=== PATIENT | female | born 1950 | race Caucasian/White ===

== ENCOUNTER 2019-06-16 07:53 | Outpatient (CLI) | payer MEDICARE, SELFPAY ==
--- NOTE | 2019-06-16 09:05 | ECG_ITS ---
Measurements Intervals [place] Rate: 61 P: 21 CO: 181 QRS: 0 QRSD: 92 T: -15 QT: 407 QTc: 411 Interpretive Statements SINUS RHYTHM POOR R WAVE PROGRESSION, ANTERIOR LEADS BORDERLINE ST-T WAVE ABNORMALITY- ANT/INF LEADS BASELINE ARTIFACT- I, II, III, AVR, AVL, AVF BORDERLINE ECG Electronically Signed On 06-16-2019 9:51:59 PROJECT MANAGER/TEAM COACH by Ricki Jackson D.O.
[2019-06-16 10:32] LABS: Hemoglobin A1C 5.3 % (<5.7)
[2019-06-16 10:35] LABS: Albumin Level 4.6 g/dL (3.5-5.1); Blood Urea Nitrogen 15 mg/dL (7-17); Calcium 9.8 mg/dL (8.4-10.2); Carbon Dioxide 27 mmol/L (22-30); Chloride 99 mmol/L (98-107); Estimated Glomerular Filt Rate > 60; Glucose 81 mg/dL (65-105); Potassium 3.8 mmol/L (3.4-5.0); Sodium 139 mmol/L (137-145)
[2019-06-16 10:48] LABS: Urine Cotinine NEGATIVE
[2019-06-16 10:50] LABS: Add Urine Microscopic? YES; Appearance Urine Clear (Clear); Bilirubin Urine Negative (Negative); Blood Urine Negative (Negative); Color Urine Yellow (Yellow); Glucose Urine UA Negative (Negative); Ketones Urine Negative (Negative); Leukocyte Esterase Ur Trace LEU/UL (Negative); Mucus Urine Rare /lpf; Nitrate Urine Negative (Negative); Protein Urine Negative (Negative); Specific Grav Ur 1.012 (1.001-1.035); Squamous Epithelial Cell Urine Occasional /hpf (Few); Urobilinogen Urine Negative mg/dL (<2.0); WBC Urine 0-3 /hpf
[2019-06-16 10:54] LABS: Basophils Percent Auto 0.4 % (0.2-1.2); Eosinophils Absolute Auto 0.1 K/mm3 (0-0.3); Eosinophils Percent Auto 1.8 % (0-4.4); Hematocrit 43.4 % (37.0-47.0); Hemoglobin 14.1 g/dL (12.0-15.0); Immature Granulocyte Absolute 0.03 K/mm3 (0.00-0.031); Immature Granulocyte Percent A 0.5 % (0-0.5); Lymphocytes Absolute Auto 0.89 K/mm3 (0.9-3.2); Lymphocytes Percent Auto 16.1 % (18.3-44.2); Mean Corpuscular HGB Conc 32.5 g/dl (32-36); Mean Corpuscular Hemoglobin 29.7 pg (26-34); Mean Corpuscular Volume 91.6 fl (80-100); Mean Platelet Volume 10.8 fl (7.4-10.4); Monocytes Absolute Auto 0.5 K/mm3 (0.1-0.6); Monocytes Percent Auto 9.2 % (2.6-8.5); Platelet Count Result 284 k/mm3 (150-375); Prothrombin Time 12.7 Seconds (11.1-14.7); Red Blood Count 4.74 M/mm3 (4.2-5.4); Red Cell Distribution Width 13.3 % (11.5-14.5); White Blood Count 5.5 K/mm3 (4.5-10.0)
[2019-06-16 10:55] LABS: Partial Thromboplastin Time 32.2 SECONDS (22.3-36.8)
== END 2019-06-16 07:54 | disposition home or self-care (01) ==
PROVIDERS: PCP Internal Medicine; Visit Provider Orthopaedic Surgery
DX: Z01.812 Encounter for preprocedural laboratory examination (principal); Z01.810 Encounter for preprocedural cardiovascular examination; M16.12 Unilateral primary osteoarthritis, left hip; R94.31 Abnormal electrocardiogram [ECG] [EKG]
CPT/HCPCS: 36415; 80048; 80307; 81001; 82040; 83036; 85025; 85610; 85730; 87081; 93005

== ENCOUNTER 2019-07-06 19:03 | Inpatient (IN) | payer MEDICARE, SELFPAY ==
[2019-06-16 07:58] VITALS: BMI 35.7
[2019-06-16 09:13] VITALS: BP 113/77; PULSE 63; RESP 18; TEMP 37.1; O2SAT 98
[2019-07-05] VITALS (14 sets, daily range): BP systolic 102–120; BP diastolic 57–81; PULSE 54–106; RESP 10–19; TEMP 36.1–37.1; O2SAT 96–100
[2019-07-05] MEDS: LACTATED RINGERS 1,000 ML 30 ML IV CONT ×2 (06:50→11:00)
[2019-07-05] MEDS: IBUPROFEN IV 800 MG/200 ML 800 MG/200 ML BAG 400 MG IVPB (07:00)
--- NOTE | 2019-07-05 07:05 | WPDANESEPPF ---
Anes - Initial Pre Proc Eval Procedure: Operation Date: 07/05/19 07:30 Proposed Procedures p Left Total Hip Arthroplasty - Alan Mercer MD Date/Time: 07/05/19 07:05 Surgeon: Alan Mercer MD Pre Op Diagnosis: Left Hip DJD Patient Data Age: 69 Gender: F Height: 1.52 m Weight: 82.3 kg Last Vital Signs Temp 37.1 C 07/05/19 06:59 Pulse 61 07/05/19 06:59 Resp 18 07/05/19 06:59 BP 120/68 07/05/19 06:59 Pulse Ox 100 07/05/19 06:59 Allergies Allergy/AdvReac Type Severity Reaction Status Date / Time prednisone Allergy Intermediate Unknown Verified 07/04/19 15:32 Home Medications Medication Instructions Recorded Confirmed Type cyanocobalamin (vitamin B-12) 1,000 mcg PO DAILY #1 cap 04/04/19 07/05/19 Rx 1,000 mcg capsule trospium 20 mg tablet 20 mg PO DAILY #1 tablet 04/04/19 07/05/19 Rx memantine 10 mg tablet 10 mg PO BID #60 tablet 05/25/19 07/05/19 Rx donepezil 10 mg tablet 10 mg PO DAILY #90 tablet 05/31/19 07/05/19 Rx levothyroxine 112 mcg tablet 112 mcg PO DAILY #90 tablet 05/31/19 07/05/19 Rx lisinopril-hydrochlorothiazide 10 - 12.5 tablet PO DAILY 06/16/19 07/05/19 History multivitamin,[id number] 1 tablet PO DAILY 06/16/19 07/05/19 History [Complete Multivitamin] simvastatin [Zocor] 40 mg PO HS 06/16/19 07/05/19 History sulfamethoxazole-trimethoprim 1 tablet PO DAILY 06/16/19 07/05/19 History Patient hx anesthesia problems: none Family hx anesthesia problems: none PMFSH Social History Social History (Updated 07/05/19 @ 07:06 by Beltran Callahan DO) Social History: quit 20 years ago Smoking status: Former smoker Second hand tobacco smoke exposure: No Alcohol intake: current Anes - Eval Final PreProcedure Day of Procedure 07/05/19 07:05 Patient weight: obese Heart: regular rate and rhythm Lungs: clear to auscultation and normal air movement Airway: Mallampati scale class II Neurological: alert and oriented Last oral intake: >/= 8 hours ASA classification: III Emergent: no Anesthetic plan: proceed Anesthesia type and monitoring: general ETT and standard monitoring Informed Consent: The patient's anesthetic plan and its attendant risks and benefits were discussed with the patient/family/POA. Questions were solicited and answers provided to the satisfaction of the patient/family/POA.
--- NOTE | 2019-07-05 07:31 | WPDHPUPDATE1 ---
History and Physical Update Update Date/Time: 07/05/19 07:31 History and Physical has been reviewed, including an updated exam of the patient. There are NO changes in the patient's condition. Risks, benefits, and alternatives have been discussed and questions answered. Patient agrees to proceed with procedure.
[2019-07-05] MEDS: ceFAZolin 2 GM/D5W 50 ML 2 GM/50 ML BAG IVPB ×3 (07:42→23:46)
--- NOTE | 2019-07-05 09:51 | SUR.OPER ---
1 UNIT PACKED RED BLOOD CELLS GIVEN BY ANESTHESIA. PLEASE SEE TAR RECORD.
--- NOTE | 2019-07-05 10:40 | PM.OP ---
Procedure Note - Brief Procedure Note - Brief Date of procedure: 07/05/19 Pre-op diagnosis: Left Hip DJD Post-op diagnosis: same Procedure performed: L LUCY Anesthesia: GETA Surgeon: Alan Mercer MD Estimated blood loss (mL): 1,000 Drains: No Complications: No immediate complications Condition: stable Disposition: PACU
[2019-07-05] MEDS: SODIUM CHLORIDE 0.9% IV 1,000 ML 125 ML IV CONT (11:00)
[2019-07-05 11:48] LABS: Hematocrit 36.1 % (37.0-47.0); Hemoglobin 11.8 g/dL (12.0-15.0)
--- NOTE | 2019-07-05 12:09 | SUR.PHASEI ---
1206 sbar faxed floor notified 1210 family updated and sent to floor
--- NOTE | 2019-07-05 12:31 | SUR.PHASEI ---
1231 rn just coming back from lunch, going to call me back
--- NOTE | 2019-07-05 13:20 | OP_ITS ---
DATE OF PROCEDURE: 07/05/2019 PREOPERATIVE DIAGNOSIS: Left hip degenerative joint disease. POSTOPERATIVE DIAGNOSIS: Left hip degenerative joint disease. PROCEDURE: Left total hip arthroplasty. ANESTHESIA: General. COMPLICATIONS: None. INDICATIONS: This is a 69-year-old female with end-stage left hip DJD. She was indicated for left total hip arthroplasty. DESCRIPTION OF PROCEDURE: The patient was taken to the operating room in stable condition and placed in supine position. General anesthesia was induced and then the patient was placed in the lateral decubitus and the left lower extremity was prepped and draped sterilely from the toes to the thigh. An incision was made over the posterior aspect of the hip down to the subcutaneous tissues and through the fascia. The sciatic nerve was identified. The piriformis tendon and the short external rotators were identified as well. The gluteus medius and minimus were retracted and the piriformis tendon was incised as well as the capsule and the incision continued down to the lesser trochanter. The hip was dislocated. Osteotomy was performed approximately 1 cm proximal to the lesser trochanter. The acetabulum was exposed. There were large inferior and superior osteophytes. Reaming then began in 40 degrees of abduction and version was in alignment with the trans-acetabular ligament until a 49 reamer fit well in the acetabulum. The 49 trial acetabular component was placed, it bottomed out very well and it was secure. The trial component was removed and then a Biomet OsseoTi #50 cup was press-fit in the acetabulum. It bottomed out well. It had good stability, 3 screws were placed for extra stability. The cup was very stable and then a liner was placed and it fit well and it was secure. The femur then was exposed and a canal finder was used initially and then broaching until a #7 broach in 15 degrees of anteversion sat well within the femoral canal. A trial +0 head and 36 standard offset component was placed on the broach and the hip was relocated and taken through range of motion. Leg lengths were grossly equal. The Shuck test was excellent and very stable in rotation. The trial components were removed and then a Biomet Taperloc #7 stem with a standard offset neck was tapped into place and it was very secure and then the hip was tried once again with a +0 neck and a 36 head and the hip was stable. Leg lengths were grossly equal. The hip came out to extension well and in rotation, the hip joint was stable. Then the trial components were removed once again and then a 36 mm head with a +0 neck was placed onto the prosthetic, which had a standard offset neck and it was secure. The hip was relocated again and taken through range of motion, found to be very stable. Leg lengths were grossly equal and the Shuck test showed really good stability. The wound was irrigated thoroughly with sterile Betadine and sterile water for 3 minutes and then washed out well, and then the short external rotators and the capsule were approximated with #1 Vicryl. The fascial layer was approximated with #2 Quill, subcutaneous tissues with 2-0 Vicryl and the skin with a 3-0 Quill running subcuticular stitch and then Dermabond was placed. Sterile dressing was applied. The patient was placed back in the supine position. She was extubated, sent to recovery. Moises Chandler MT: Kailyn
--- NOTE | 2019-07-05 14:12 | PC.NURSE ---
Returned from OR per [ ] BED AT 1300 MOVES TOES SENSATION NORMAL, FAMILY AT BEDSIDE, IV SITES CLEAN AND H-L ALVARENGA DRAINING PALE PINK RETURN LUNGS DIMINISHED DENIES THE NEED FOR PAIN MEDS.
[2019-07-05] MEDS: DOCUSATE SODIUM 100 MG CAPSULE PO (17:31)
--- NOTE | 2019-07-05 20:34 | PM.IMCN ---
Assessment and Plan Assessment and plan (1) History of total left hip arthroplasty: Code(s): Z96.642 - Presence of left artificial hip joint Status: Acute Assessment and Plan: Postop care per Dr. Mercer. She has bilateral SCDs. Pain management per Dr. Mercer. Her large Band-Aid is dry and intact the left hip. No drainage is noted. DVT prophylaxis as per Dr. Mercer the patient has SCDs on (2) Hypothyroidism, unspecified: Code(s): E03.9 - Hypothyroidism, unspecified Status: Chronic Assessment and Plan: Continue with levothyroxine. (3) Mixed hyperlipidemia: Code(s): E78.2 - Mixed hyperlipidemia Status: Chronic Assessment and Plan: Continue with Zocor. (4) Essential (primary) hypertension: Code(s): I10 - Essential (primary) hypertension Status: Chronic Assessment and Plan: Continue with lisinopril. She is on hydrochlorothiazide as well. Please monitor basic metabolic panel. (5) Alzheimer's dementia without behavioral disturbance: Code(s): G30.9 - Alzheimer's disease, unspecified; F02.80 - Dementia in other diseases classified elsewhere without behavioral disturbance Status: Chronic Assessment and Plan: Patient is very forgetful. However he right in her a note as reminder this helps. She has been very pleasant. Continue with Aricept HPI Data of Consult Consult date: 07/05/19 Requesting Physician: Alan Mercer MD Primary Care Provider: Sav Valencia Jr., MD Consult Narrative Narrative: Lori Beard is a 69 year old female who has a history of dementia but is still ambulatory. The patient has severe degenerative joint disease of the left hip. The patient was having medial and lateral pain that a stabbing and causing weakness it was constant and exacerbated by direct pressure weight-bearing activities of daily living squatting stairs rotational activities and prolonged activity. It is relieved by rest. The patient underwent an elective left total hip arthroplasty per Dr. Mercer today. Please see the operative note. No immediate complications. Estimated blood loss was about 1000. I think orthopedic physician Dr. Mercer the consult today. Date of service 07/05/2019 Review of Systems Review of Systems: Narrative: The patient was agitated earlier and was pulling things often pulling at her Webb catheter. She made herself a note remind herself that she has a Webb catheter not pulmonic. She has a history of dementia. I straightened up her bed and told her about the note on the side of the bed reminding her not to get up and about Webb catheter. Patient stated she remembers and she was very pleasant. I read her history to her and she agrees. She has no discomfort at this time. She stated that she knew was nighttime and she was ready for bed All systems reviewed & are unremarkable except as noted in HPI and below Constitutional: Constitutional: Reports as per HPI and Reports no additional constitutional complaints Eyes: Eyes: Reports as per HPI and Reports no additional eye complaints ENT: Reports system reviewed and no additional complaints, except as documented and Reports Normal hearing present Cardiovascular: Cardiovascular: Reports no additional cardiovascular complaints Respiratory: Respiratory: Reports no additional respiratory complaints and Reports no additional respiratory complaints Gastrointestinal: Gastrointestinal: Reports as per HPI and Reports no additional gastrointestinal complaints Musculoskeletal: Musculoskeletal: Reports no additional musculoskeletal complaints Integumentary/Breasts: Skin/Breast: Reports system reviewed and no additional complaints, except as docu and Reports as per HPI Neurologic: Reports system reviewed and no additional complaints, except as documented, Reports as per HPI and Reports Normal hearing present Psychiatric: Psychiatric: Reports no additional psychiatric c
[2019-07-05] MEDS: MEMANTINE 10 MG TABLET PO (22:11)
[2019-07-05] MEDS: SIMVASTATIN 20 MG TABLET 40 MG PO (22:11)
[2019-07-05] MEDS: DIAZEPAM 5 MG TABLET PO (23:46)
--- NOTE | ~2019-07-06 | XR_ITS ---
EXAMINATION: XR hip LT 1V DATE: 07/05/2019 11:09 INDICATION: Left total hip arthroplasty TECHNIQUE: AP portable view of the left hip FINDINGS: There is a left total hip arthroplasty in expected position. Subcutaneous gas with soft ti ssue swelling are consistent with recent surgery. No evidence for periprosthetic fracture. IMPRESSION: 1. Recent left total hip arthroplasty. Reviewed, dictated and finalized at location B. [employer]
[2019-07-06 02:05] VITALS: BP 109/74; PULSE 99; RESP 20; TEMP 37.2; O2SAT 97
[2019-07-06 06:11] VITALS: BP 107/69; PULSE 108; RESP 20; TEMP 36.9; O2SAT 99
[2019-07-06 06:29] LABS: Basophils Percent Auto 0.1 % (0.2-1.2); Hematocrit 30.9 % (37.0-47.0); Hemoglobin 10.2 g/dL (12.0-15.0); Immature Granulocyte Absolute 0.02 K/mm3 (0.00-0.031); Immature Granulocyte Percent A 0.2 % (0-0.5); Lymphocytes Absolute Auto 0.67 K/mm3 (0.9-3.2); Lymphocytes Percent Auto 6.6 % (18.3-44.2); Mean Corpuscular Hemoglobin 29.6 pg (26-34); Mean Corpuscular Volume 89.6 fl (80-100); Mean Platelet Volume 10.1 fl (7.4-10.4); Monocytes Absolute Auto 1.6 K/mm3 (0.1-0.6); Neutrophils Absolute Auto 7.8 K/mm3 (1.3-6.7); Neutrophils Percent Auto 77.1 % (45.5-73.1); Platelet Count Result 252 k/mm3 (150-375); Red Blood Count 3.45 M/mm3 (4.2-5.4); Red Cell Distribution Width 13.4 % (11.5-14.5); White Blood Count 10.1 K/mm3 (4.5-10.0)
[2019-07-06 06:39] LABS: Blood Urea Nitrogen 12 mg/dL (7-17); Calcium 8.3 mg/dL (8.4-10.2); Carbon Dioxide 20 mmol/L (22-30); Chloride 99 mmol/L (98-107); Estimated CRCL calculation 62 ml/min; Estimated Glomerular Filt Rate > 60; Glucose 141 mg/dL (65-105); Potassium 4.2 mmol/L (3.4-5.0); Sodium 129 mmol/L (137-145)
--- NOTE | 2019-07-06 07:36 | PC.NURSE ---
Called pharmacy to request 0630 dose of synthroid. Waiting for pharmacy to send, passed on in report to day nurse.
[2019-07-06 08:19] VITALS: BP 121/75; PULSE 111; RESP 16; TEMP 36.6; O2SAT 94
[2019-07-06] MEDS: MORPHINE SULFATE 4 MG/ML INJ 3 MG IV PUSH (09:08)
[2019-07-06] MEDS: ONDANSETRON INJ 4 MG/2 ML VIAL IV PUSH (09:08)
[2019-07-06] MEDS: ceFAZolin 2 GM/D5W 50 ML 2 GM/50 ML BAG IVPB (09:10)
[2019-07-06] MEDS: LEVOTHYROXINE SODIUM 112 MCG TABLET PO (09:10)
[2019-07-06] MEDS: MEMANTINE 10 MG TABLET PO ×2 (09:10→21:11)
[2019-07-06] MEDS: DOCUSATE SODIUM 100 MG CAPSULE PO ×2 (10:11→17:01)
[2019-07-06] MEDS: ASPIRIN 325 MG ENTERIC TABLET 650 MG PO (10:11)
[2019-07-06] MEDS: lisinopriL 10 MG TABLET PO (10:12)
[2019-07-06] MEDS: hydroCHLOROthiazide 12.5 MG CAPSULE PO (10:12)
[2019-07-06] MEDS: CYANOCOBALAMIN 1,000 MCG TABLET 1000 MCG PO (10:12)
[2019-07-06] MEDS: CELECOXIB 200 MG CAPSULE PO (10:12)
[2019-07-06 12:29] VITALS: BP 97/59; PULSE 108; RESP 16; TEMP 36.6; O2SAT 100
[2019-07-06] MEDS: DONEPEZIL HCL 10 MG TABLET PO (12:33)
--- NOTE | 2019-07-06 13:13 | PM.IMPN ---
Progress Note: A&P Assessment and Plan (1) History of total left hip arthroplasty: Code(s): Z96.642 - Presence of left artificial hip joint Status: Acute Assessment and Plan: Postop care per Dr. Mercer. She has bilateral SCDs. Pain management per Dr. Mercer. Her large Band-Aid is dry and intact the left hip. No drainage is noted. DVT prophylaxis as per Dr. Mercer the patient has SCDs on 07/06/19 13:13 Patient is 69-year-old female with severe dementia with history of severe osteoarthritis conservative management failed patient was seen by her orthopedic surgeon and had a left total hip arthroplasty postop day 1. Patient says the pain is controlled working with physical therapy, denies any complaint of chest pain shortness of breath palpitation fever or chills (2) Hypothyroidism, unspecified: Code(s): E03.9 - Hypothyroidism, unspecified Status: Chronic Assessment and Plan: Continue with levothyroxine. (3) Mixed hyperlipidemia: Code(s): E78.2 - Mixed hyperlipidemia Status: Chronic Assessment and Plan: Continue with Zocor. (4) Essential (primary) hypertension: Code(s): I10 - Essential (primary) hypertension Status: Chronic Assessment and Plan: Continue with lisinopril. She is on hydrochlorothiazide as well. Please monitor basic metabolic panel. (5) Alzheimer's dementia without behavioral disturbance: Code(s): G30.9 - Alzheimer's disease, unspecified; F02.80 - Dementia in other diseases classified elsewhere without behavioral disturbance Status: Chronic Assessment and Plan: Patient is very forgetful. However he right in her a note as reminder this helps. She has been very pleasant. Continue with Aricept Subjective Date/time seen: 07/06/19 13:13 Patient is 69-year-old female with severe dementia with history of severe osteoarthritis conservative management failed patient was seen by her orthopedic surgeon and had a left total hip arthroplasty postop day 1. Patient says the pain is controlled working with physical therapy, denies any complaint of chest pain shortness of breath palpitation fever or chills Review of Systems Review of Systems: All systems reviewed & are unremarkable except as noted in HPI and below Exam Const: General: comfortable and no acute distress HENMT: General nose exam: Normal nares present Mouth: Yes moist mucous membranes Eyes: General: appearance normal, both eyes and all related structures Sclera: sclerae normal Neck: Neck: supple Resp: Effort & Inspection: normal respiratory effort Auscultation: clear to auscultation bilaterally Cardio: Rate: regular rate Rhythm: regular rhythm GI: Auscultation: normal bowel sounds Skin: General skin exam: normal color and no rashes or lesions noted Neuro: Other: Patient with dementia Extrem: Other: Bilateral lower extremity symmetrical there is no internal or external rotation Psych: Affect: Anxious affect present Other: Patient with dementia Objective Data Vital Signs Vital Signs: Vital Signs - 24 hr 07/05/19 13:15 07/05/19 13:45 07/05/19 13:55 Temperature 97.9 F 97.9 F Pulse Rate 54 L 93 Respiratory Rate 18 18 12 Blood Pressure 114/62 102/69 Pulse Oximetry 100 100 07/05/19 14:45 07/05/19 22:00 07/06/19 02:05 Temperature 97.7 F 98.7 F 99 F Pulse Rate 73 106 H 99 Respiratory Rate 16 16 20 Blood Pressure 106/61 114/77 109/74 Pulse Oximetry 100 98 97 07/06/19 06:11 07/06/19 08:19 07/06/19 12:29 Temperature 98.4 F 97.8 F 97.8 F Pulse Rate 108 H 111 H 108 H Respiratory Rate 20 16 16 Blood Pressure 107/69 121/75 97/59 L Pulse Oximetry 99 94 100 Intake/Output Intake/Output: Intake & Output 07/03/19 07/04/19 07/05/19 07/06/19 23:59 23:59 23:59 23:59 Intake Total 1250 410 Output Total 500 300 Balance 750 110 Meds/Results Medications: Active Medications Generic Name Dose Route Start Last Admin Tr
--- NOTE | 2019-07-06 14:01 | WPDANESPN ---
Anes - Prog Note Post-Op Date/Time: 07/06/19 14:01 Cardiovascular status: normal Respiratory status: normal Airway patency: baseline Mental status: baseline Post-Op hydration status: normal Vital Signs: Last Vital Signs Temp 36.6 C 07/06/19 12:29 Pulse 108 H 07/06/19 12:29 Resp 16 07/06/19 12:29 BP 97/59 L 07/06/19 12:29 Pulse Ox 100 07/06/19 12:29 I/O: Intake & Output 07/05/19 07/06/19 07/06/19 23:59 07:59 15:59 Intake Total 500 170 240 Output Total 150 300 Balance 350 -130 240 Laboratory Tests 07/06/19 06:10 07/06/19 06:10 07/05/19 07/06/19 07/06/19 06:33 06:10 06:10 WBC 10.1 H RBC 3.45 L Hgb 10.2 L Hct 30.9 L MCV 89.6 MCH 29.6 MCHC 33.0 RDW 13.4 Plt Count 252 MPV 10.1 Immature Gran % (Auto) 0.2 Neut % (Auto) 77.1 H Lymph % (Auto) 6.6 L [place] % (Auto) 16.0 H Eos % (Auto) 0.0 Baso % (Auto) 0.1 L Lymph # (Auto) 0.67 L [place] # (Auto) 1.6 H Eos # (Auto) 0.0 Baso # (Auto) 0.0 Abs Immat Gran (auto) 0.02 Absolute Neuts (auto) 7.8 H Absolute Nucleated RBC 0.0 Nucleated RBC % 0.0 Sodium 129 L Potassium 4.2 Chloride 99 Carbon Dioxide 20 L BUN 12 Creatinine 0.70 Estim Creat Clear Calc 62 Estimated GFR > 60 Glucose 141 H Calcium 8.3 L Crossmatch See Detail Post-procedural complaints: none Patient Feedback: Patient satisfied with anesthetic care.
[2019-07-06 15:18] VITALS: BP 108/48; PULSE 105; RESP 16; TEMP 36.6; O2SAT 98
--- NOTE | 2019-07-06 19:06 | PCCCNOTE ---
Spoke with nurse on 3 med surg; Dr Michel in and not dc pt; pt just not ready; changed to inpt status
[2019-07-06] MEDS: SIMVASTATIN 20 MG TABLET 40 MG PO (21:11)
[2019-07-06 22:00] VITALS: BP 70/48; PULSE 88; RESP 16; TEMP 37.2; O2SAT 97
[2019-07-06] MEDS: SODIUM CHLORIDE 0.9% IV 500 ML IV CONT (23:32)
[2019-07-07] VITALS (7 sets, daily range): BP systolic 84–110; BP diastolic 46–68; PULSE 80–99; RESP 16–18; TEMP 36.4–37.2; O2SAT 94–100
[2019-07-07] MEDS: SODIUM CHLORIDE 0.9% IV 500 ML IV CONT (01:02)
[2019-07-07] MEDS: ACETAMINOPHEN 325 MG TABLET 650 MG PO ×2 (05:29→20:52)
[2019-07-07] MEDS: LEVOTHYROXINE SODIUM 112 MCG TABLET PO (05:30)
[2019-07-07 06:25] LABS: Hematocrit 24.2 % (37.0-47.0); Hemoglobin 8.1 g/dL (12.0-15.0); Mean Corpuscular HGB Conc 33.5 g/dl (32-36); Mean Corpuscular Hemoglobin 30.6 pg (26-34); Mean Corpuscular Volume 91.3 fl (80-100); Mean Platelet Volume 10.9 fl (7.4-10.4); Platelet Count Result 189 k/mm3 (150-375); Red Blood Count 2.65 M/mm3 (4.2-5.4); Red Cell Distribution Width 13.6 % (11.5-14.5); White Blood Count 8.9 K/mm3 (4.5-10.0)
[2019-07-07 06:39] LABS: Blood Urea Nitrogen 20 mg/dL (7-17); Carbon Dioxide 23 mmol/L (22-30); Chloride 100 mmol/L (98-107); Estimated CRCL calculation 55 ml/min; Estimated Glomerular Filt Rate > 60; Glucose 112 mg/dL (65-105); Potassium 3.3 mmol/L (3.4-5.0); Sodium 128 mmol/L (137-145)
[2019-07-07] MEDS: ASPIRIN 325 MG ENTERIC TABLET 650 MG PO (10:10)
[2019-07-07] MEDS: hydroCHLOROthiazide 12.5 MG CAPSULE PO (10:10)
[2019-07-07] MEDS: lisinopriL 10 MG TABLET PO (10:11)
[2019-07-07] MEDS: CELECOXIB 200 MG CAPSULE PO (10:11)
[2019-07-07] MEDS: CYANOCOBALAMIN 1,000 MCG TABLET 1000 MCG PO (10:11)
[2019-07-07] MEDS: DONEPEZIL HCL 10 MG TABLET PO (10:11)
[2019-07-07] MEDS: MEMANTINE 10 MG TABLET PO ×2 (10:11→20:52)
[2019-07-07] MEDS: DOCUSATE SODIUM 100 MG CAPSULE PO ×2 (10:25→17:43)
[2019-07-07] MEDS: POTASSIUM CHLORIDE 20 MEQ PACKET (FOR LIQUID) 40 MEQ PO (10:25)
--- NOTE | 2019-07-07 11:29 | PM.PNORT ---
Progress Note: A&P Additional Plan POD 2 WITH SLOW PROGRESS WITH PT. SHE WILL NEED SOME FORM OF REHAB OR SNF. CONTINUE PT Time Spent With Patient Time with patient: less than 15 minutes Subjective Subjective Date/Time Seen: 07/07/19 11:29 POD 1 DOING WELL. 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 [employer] SIGN Objective Data Vital Signs Vital Signs: Vital Signs - 24 hr 07/06/19 12:29 07/06/19 15:18 07/06/19 22:00 Temperature 36.6 C 36.6 C 37.2 C Pulse Rate 108 H 105 H 88 Respiratory Rate 16 16 16 Blood Pressure 97/59 L 108/48 L 70/48 L Pulse Oximetry 100 98 97 07/07/19 00:00 07/07/19 01:43 07/07/19 07:05 Temperature 36.9 C Pulse Rate 80 82 82 Respiratory Rate 16 Blood Pressure 90/50 L 105/60 90/46 L Pulse Oximetry 94 07/07/19 08:00 Temperature Pulse Rate 82 Respiratory Rate 16 Blood Pressure Pulse Oximetry 94 Intake/Output Intake/Output: Intake & Output 07/04/19 07/05/19 07/06/19 07/07/19 23:59 23:59 23:59 23:59 Intake Total 4409 995 3444 Output Total 500 300 300 Balance 750 660 800 Meds/Results Medications: Active Medications Generic Name Dose Route Start Last Admin Trade Name Freq PRN Reason Stop Dose Admin Acetaminophen 650 mg 07/05/19 10:43 07/07/19 05:29 Tylenol Tablet PO 650 mg Q6H PRN Administration Mild Pain (1-3) or Fever Hydrocodone Bitart/Acetaminophen 1 tab 07/05/19 10:43 07/07/19 10:12 [place] 7.5-325 Mg PO 1 tab Q3H PRN Administration Pain Rated 4-6 Aspirin 650 mg 07/06/19 09:00 07/07/19 10:10 Aspirin Ec PO 650 mg DAILY NICKI Administration Celecoxib 200 mg 07/06/19 09:00 07/07/19 10:11 Celebrex PO 200 mg DAILY NICKI Administration Cyanocobalamin 1,000 mcg 07/06/19 09:00 07/07/19 10:11 Vitamin B-12 Tab PO 1,000 mcg DAILY NICKI Administration Diazepam 5 mg 07/05/19 10:43 07/05/19 23:46 Valium Po PO 5 mg Q6H PRN Administration Anxiety/Muscle Spasm Docusate Sodium 100 mg 07/05/19 17:00 07/07/19 10:25 Colace Capsule PO 100 mg BID [facility] Administration Donepezil HCl 10 mg 07/06/19 09:00 07/07/19 10:11 Aricept PO 10 mg DAILY [facility] Administration Hydrochlorothiazide 12.5 mg 07/06/19 09:00 07/07/19 10:10 Hydrochlorothiazide PO 12.5 mg QAM [facility] Administration Ibuprofen 800 mg in 200 mls @ 400 mls/hr 07/05/19 10:43 Caldolor 800 Mg/200 Ml IVPB Q6H PRN Pain Rated 4-6 Levothyroxine Sodium 112 mcg 07/06/19 06:30 07/07/19 05:30 Synthroid PO 112 mcg DAILY@0630 [facility] Administration Lisinopril 10 mg 07/06/19 09:00 07/07/19 10:11 Prinivil PO 10 mg QAM [facility] Administration Magnesium Hydroxide 30 ml 07/05/19 10:43 Milk Of Magnesia PO BID PRN Constipation Memantine 10 mg 07/05/19 21:00 07/07/19 10:11 Namenda PO 10 mg Q12HR [facility] Administration Morphine Sulfate 3 mg 07/05/19 10:43 07/06/19 09:08 Morphine Sulfate Inj IV PUSH 3 mg Q3H PRN Administration Pain Rated 7-10 Naloxone HCl 0.1 mg 07/05/19 10:43 Narcan IV PUSH Q2M PRN Opiate Reversal Non-Formulary Medication 20 mg 07/06/19 09:00 Trospium PO 08/05/19 09:01 DAILY [facility] Ondansetron HCl 4 mg 07/04/19 08:50 Zofran Inj IV PUSH ONCE PRN Nausea Ondansetron HCl 4 mg 07/05/19 10:43 07/06/19 09:08 Zofran Inj IV PUSH 4 mg Q4H PRN Administration Nausea And Vomiting Oxycodone/Acetaminophen 2 tablet 07/05/19 10:43 Percocet 5-325 Mg PO Q4H PRN Breakthrough Pain Simvastatin 40 mg 07/05/19 21:00 07/06/19 21:11 Zocor PO 40 mg HS NICKI Administration Radiology Results: ITS Impressions Hip X-Ray 07/05/19 11:29 IMPRESSION: 1. Recent left total hip arthroplasty. Labs Labs: Laboratory Results - last 24 hr 07/07/19 07/07/19 05:44 05:44 WBC 8.9 RBC 2.65 L Hgb 8.1 L Hct 24.2 L MCV 91.3 MC
[2019-07-07] MEDS: SODIUM CHLORIDE 0.9% IV 1,000 ML 75 ML (14:10)
--- NOTE | 2019-07-07 15:57 | PM.IMPN ---
Progress Note: A&P Assessment and Plan (1) History of total left hip arthroplasty: Code(s): Z96.642 - Presence of left artificial hip joint Status: Acute Assessment and Plan: 07/07/19 15:[address] Mercer. She has bilateral SCDs. Pain management per Dr. Mercer. Her large Band-Aid is dry and intact the left hip. No drainage is noted. DVT prophylaxis as per Dr. Mercer the patient has SCDs on Patient is 69-year-old female with severe dementia with history of severe osteoarthritis conservative management failed patient was seen by her orthopedic surgeon and had a left total hip arthroplasty postop day 2. Patient says the pain is controlled working with physical therapy, denies any complaint of chest pain shortness of breath palpitation fever or chills, her daughter is present in the was seen by her surgeon plan is to transfer the patient for rehab is patient as with dementia will benefit from acute rehab to recover from her repeat surgery (2) Hypothyroidism, unspecified: Code(s): E03.9 - Hypothyroidism, unspecified Status: Chronic Assessment and Plan: Continue with levothyroxine. (3) Mixed hyperlipidemia: Code(s): E78.2 - Mixed hyperlipidemia Status: Chronic Assessment and Plan: Continue with Zocor. (4) Essential (primary) hypertension: Code(s): I10 - Essential (primary) hypertension Status: Chronic Assessment and Plan: Continue with lisinopril. She is on hydrochlorothiazide as well. Please monitor basic metabolic panel. (5) Alzheimer's dementia without behavioral disturbance: Code(s): G30.9 - Alzheimer's disease, unspecified; F02.80 - Dementia in other diseases classified elsewhere without behavioral disturbance Status: Chronic Assessment and Plan: Patient is very forgetful. However he right in her a note as reminder this helps. She has been very pleasant. Continue with Aricept Subjective Date/time seen: 07/07/19 15:[address] Mercer. She has bilateral SCDs. Pain management per Dr. Mercer. Her large Band-Aid is dry and intact the left hip. No drainage is noted. DVT prophylaxis as per Dr. Mercer the patient has SCDs on Patient is 69-year-old female with severe dementia with history of severe osteoarthritis conservative management failed patient was seen by her orthopedic surgeon and had a left total hip arthroplasty postop day 2. Patient says the pain is controlled working with physical therapy, denies any complaint of chest pain shortness of breath palpitation fever or chills, her daughter is present in the was seen by her surgeon plan is to transfer the patient for rehab is patient as with dementia will benefit from acute rehab to recover from her repeat surgery Review of Systems Review of Systems: All systems reviewed & are unremarkable except as noted in HPI and below Exam Const: General: comfortable and no acute distress HENMT: General nose exam: Normal nares present Mouth: Yes moist mucous membranes Eyes: General: appearance normal, both eyes and all related structures Sclera: sclerae normal Neck: Neck: supple Resp: Effort & Inspection: normal respiratory effort Auscultation: clear to auscultation bilaterally Cardio: Rate: regular rate Rhythm: regular rhythm Skin: General skin exam: normal color and no rashes or lesions noted Neuro: Other: Patient with severe dementia Extrem: Other: Bilateral lower extremity symmetrical there is no internal or external rotation Psych: Affect: Anxious affect present Objective Data Vital Signs Vital Signs: Vital Signs - 24 hr 07/06/19 22:00 07/07/19 00:00 07/07/19 01:43 Temperature 98.9 F Pulse Rate 88 80 82 Respiratory Rate 16 Blood Pressure 70/48 L 90/50 L 105/60 Pulse Oximetry 97 07/07/19 07:05 07/07/19 08:00 07/07/19 14:20 Temperature 98.4 F 97.6 F Pulse Rate 82 82 86 Respiratory Rate 16 16 16 Blood Pressure 90/46 L 8
[2019-07-07] MEDS: DIAZEPAM 5 MG TABLET PO (20:52)
[2019-07-07] MEDS: SIMVASTATIN 20 MG TABLET 40 MG PO (20:52)
[2019-07-08] VITALS (7 sets, daily range): BP systolic 86–99; BP diastolic 35–61; PULSE 83–91; RESP 16–21; TEMP 36.7–37.4; O2SAT 37–98
[2019-07-08] MEDS: SODIUM CHLORIDE 0.9% IV 1,000 ML 75 ML IV CONT (05:08)
[2019-07-08] MEDS: LEVOTHYROXINE SODIUM 112 MCG TABLET PO (05:09)
[2019-07-08 06:28] LABS: Hematocrit 21.5 % (37.0-47.0); Hemoglobin 7.1 g/dL (12.0-15.0); Mean Corpuscular Hemoglobin 29.7 pg (26-34); Mean Platelet Volume 10.6 fl (7.4-10.4); Platelet Count Result 179 k/mm3 (150-375); Red Blood Count 2.39 M/mm3 (4.2-5.4); Red Cell Distribution Width 13.1 % (11.5-14.5)
[2019-07-08 07:10] LABS: Blood Urea Nitrogen 12 mg/dL (7-17); Calcium 7.9 mg/dL (8.4-10.2); Carbon Dioxide 23 mmol/L (22-30); Chloride 100 mmol/L (98-107); Estimated CRCL calculation 84 ml/min; Estimated Glomerular Filt Rate > 60; Glucose 111 mg/dL (65-105); Potassium 3.6 mmol/L (3.4-5.0); Sodium 127 mmol/L (137-145)
[2019-07-08] MEDS: POTASSIUM CHLORIDE 20 MEQ PACKET (FOR LIQUID) 40 MEQ PO (09:12)
[2019-07-08] MEDS: CELECOXIB 200 MG CAPSULE PO (09:12)
[2019-07-08] MEDS: ASPIRIN 325 MG ENTERIC TABLET 650 MG PO (09:12)
[2019-07-08] MEDS: DONEPEZIL HCL 10 MG TABLET PO (09:13)
[2019-07-08] MEDS: CYANOCOBALAMIN 1,000 MCG TABLET 1000 MCG PO (09:13)
[2019-07-08] MEDS: lisinopriL 10 MG TABLET PO (09:16)
[2019-07-08] MEDS: MEMANTINE 10 MG TABLET PO ×2 (09:16→22:10)
[2019-07-08] MEDS: DOCUSATE SODIUM 100 MG CAPSULE PO ×2 (09:16→17:49)
--- NOTE | 2019-07-08 11:05 | PM.PNORT ---
Progress Note: A&P Assessment and Plan (1) History of total left hip arthroplasty: Code(s): Z96.642 - Presence of left artificial hip joint Status: Acute Assessment and Plan: Postoperative day 3. Slow to progress with therapy but starting to improve. Pain well controlled. Continue PT /OT. Plans for half-way once medically stable. Needs blood transfusion. Also hyponatremic. (2) Anemia associated with acute blood loss: Code(s): D62 - Acute posthemorrhagic anemia Status: Acute Assessment and Plan: hemoglobin 7.1. Plan for transfusion red blood cells today. Will follow H and H in the morning. Subjective Subjective Date/Time Seen: 07/08/19 11:05 Patient with labile blood pressure yesterday. Slow to progress with therapy status post left hip arthroplasty. Continues to follow acute blood loss anemia. Exam Const: General: healthy appearing and confusion ( Mild); No in distress Orientation/consciousness: oriented to person and confusion ( mild) HENMT: Head: normal to inspection, normocephalic and atraumatic Eyes: Conjunctivae: conjunctivae normal Sclera: sclerae normal Resp: Effort & Inspection: normal respiratory effort and no audible wheezes Extrem: Left lower extremity: hip/thigh Details: other ( left hip dressing clean and dry. Incision clean dry and intact. Mild swelling. No erythema. Muscle compartments soft.) and foot Details: toes with normal ROM, vascular exam Details: dorsalis pedis pulse present and normal capillary refill and motor-sensory exam light-touch normal in all toes Psych: Affect: normal affect Objective Data Vital Signs Vital Signs: Vital Signs - 24 hr 07/07/19 14:20 07/07/19 15:00 07/07/19 22:23 Temperature 97.6 F 99.0 F Pulse Rate 86 99 Respiratory Rate 16 18 Blood Pressure 84/48 L 110/68 104/52 L Pulse Oximetry 100 98 07/08/19 06:45 Temperature 99.0 F Pulse Rate 84 Respiratory Rate 18 Blood Pressure 93/49 L Pulse Oximetry 98 Intake/Output Intake/Output: Intake & Output 07/05/19 07/06/19 07/07/19 07/08/19 23:59 23:59 23:59 23:59 Intake Total 1353 756 8483 550 Output Total 500 300 450 Balance 734 731 9509 550 Meds/Results Medications: Active Medications Generic Name Dose Route Start Last Admin Trade Name Freq PRN Reason Stop Dose Admin Acetaminophen 650 mg 07/05/19 10:43 07/07/19 20:52 Tylenol Tablet PO 650 mg Q6H PRN Administration Mild Pain (1-3) or Fever Hydrocodone Bitart/Acetaminophen 1 tab 07/05/19 10:43 07/08/19 05:07 [place] 7.5-325 Mg PO 1 tab Q3H PRN Administration Pain Rated 4-6 Aspirin 650 mg 07/06/19 09:00 07/08/19 09:12 Aspirin Ec PO 650 mg DAILY NICKI Administration Celecoxib 200 mg 07/06/19 09:00 07/08/19 09:12 Celebrex PO 200 mg DAILY NICKI Administration Cyanocobalamin 1,000 mcg 07/06/19 09:00 07/08/19 09:13 Vitamin B-12 Tab PO 1,000 mcg DAILY NICKI Administration Diazepam 5 mg 07/05/19 10:43 07/07/19 20:52 Valium Po PO 5 mg Q6H PRN Administration Anxiety/Muscle Spasm Docusate Sodium 100 mg 07/05/19 17:00 07/08/19 09:16 Colace Capsule PO 100 mg BID NICKI Administration Donepezil HCl 10 mg 07/06/19 09:00 07/08/19 09:13 Aricept PO 10 mg DAILY NICKI Administration Hydrochlorothiazide 12.5 mg 07/06/19 09:00 07/08/19 09:18 Hydrochlorothiazide PO Not Given QAM NICKI Ibuprofen 800 mg in 200 mls @ 400 mls/hr 07/05/19 10:43 Caldolor 800 Mg/200 Ml IVPB Q6H PRN Pain Rated 4-6 Sodium Chloride 1,000 mls @ 75 mls/hr 07/07/19 14:10 07/08/19 05:08 Normal Saline Iv IV CONT 75 mls/hr .[id number] NICKI Administration Levothyroxine Sodium 112 mcg 07/06/19 06:30 07/08/19 05:09 Synthroid PO 112 mcg DAILY@0630 NICKI Administration Lisinopril 10 mg 07/06/19 09:00 07/08/19 09:16 Prinivil PO 10 mg QAM NICKI Administration Magnesium Hydroxide 30 ml 07/05/19 10:43
--- NOTE | 2019-07-08 13:47 | PM.IMPN ---
Progress Note: A&P Assessment and Plan (1) History of total left hip arthroplasty: Code(s): Z96.642 - Presence of left artificial hip joint Status: Acute Assessment and Plan: 07/08/19 13:[address] Mercer. She has bilateral SCDs. Pain management per Dr. Mercer. Her large Band-Aid is dry and intact the left hip. No drainage is noted. DVT prophylaxis as per Dr. Mercer the patient has SCDs on Patient is 69-year-old female with severe dementia with history of severe osteoarthritis conservative management failed patient was seen by her orthopedic surgeon and had a left total hip arthroplasty postop day 2. Patient says the pain is controlled working with physical therapy, denies any complaint of chest pain shortness of breath palpitation fever or chills, was seen by her surgeon plan is to transfer the patient for rehab, as patient with dementia will benefit from acute rehab to recover from her repeat surgery, today patient hemoglobin is trending down most likely secondary to hemodilution as well as some blood loss during the surgery will give 1 unit of pack RBC and monitor, patient denies any bleeding patient denies and swelling along the surgical incision I also spoke with her nurse and see does not suspect and hematoma along the surgical incision. (2) Hypothyroidism, unspecified: Code(s): E03.9 - Hypothyroidism, unspecified Status: Chronic Assessment and Plan: Continue with levothyroxine. (3) Mixed hyperlipidemia: Code(s): E78.2 - Mixed hyperlipidemia Status: Chronic Assessment and Plan: Continue with Zocor. (4) Essential (primary) hypertension: Code(s): I10 - Essential (primary) hypertension Status: Chronic Assessment and Plan: Continue with lisinopril. She is on hydrochlorothiazide as well. Please monitor basic metabolic panel. (5) Alzheimer's dementia without behavioral disturbance: Code(s): G30.9 - Alzheimer's disease, unspecified; F02.80 - Dementia in other diseases classified elsewhere without behavioral disturbance Status: Chronic Assessment and Plan: Patient is very forgetful. However he right in her a note as reminder this helps. She has been very pleasant. Continue with Aricept Subjective Date/time seen: 07/08/19 13:[address] Mercer. She has bilateral SCDs. Pain management per Dr. Mercer. Her large Band-Aid is dry and intact the left hip. No drainage is noted. DVT prophylaxis as per Dr. Mercer the patient has SCDs on Patient is 69-year-old female with severe dementia with history of severe osteoarthritis conservative management failed patient was seen by her orthopedic surgeon and had a left total hip arthroplasty postop day 2. Patient says the pain is controlled working with physical therapy, denies any complaint of chest pain shortness of breath palpitation fever or chills, was seen by her surgeon plan is to transfer the patient for rehab, as patient with dementia will benefit from acute rehab to recover from her repeat surgery, today patient hemoglobin is trending down most likely secondary to hemodilution as well as some blood loss during the surgery will give 1 unit of pack RBC and monitor, patient denies any bleeding patient denies and swelling along the surgical incision I also spoke with her nurse and see does not suspect and hematoma along the surgical incision. Review of Systems Review of Systems: All systems reviewed & are unremarkable except as noted in HPI and below Exam Const: General: comfortable and no acute distress HENMT: General nose exam: Normal nares present Mouth: Yes moist mucous membranes Eyes: General: appearance normal, both eyes and all related structures Sclera: sclerae normal Neck: Neck: supple Resp: Effort & Inspection: normal respiratory effort Auscultation: clear to auscultation bilaterally Cardio: Rate: regular rate Rhythm: regular rhythm GI: Auscultation
[2019-07-08] MEDS: ONDANSETRON INJ 4 MG/2 ML VIAL IV PUSH (14:52)
[2019-07-08] MEDS: ACETAMINOPHEN 325 MG TABLET 650 MG PO (15:39)
[2019-07-08] MEDS: SODIUM CHLORIDE 0.9% IV 250 ML 30 ML IV CONT (17:43)
[2019-07-08] MEDS: TUBING, BLOOD PLUM PUMP TUBING 1 EACH XX (17:43)
[2019-07-08] MEDS: SIMVASTATIN 20 MG TABLET 40 MG PO (22:11)
--- NOTE | 2019-07-09 01:56 | PC.NURSE ---
Daylight Savings Time For Daylight Savings Time Ending in the Fall - Clocks are moved back. For Daylight Savings Time Beginning in the Spring - Clocks are moved ahead. For [facility], the time of change occurs at 0200 hrs. Time is taken from the sql server architect. This entry on the patient's chart recognizes the change in time reflected during documentation. Example: 2 entries for vital signs may be charted for 0200 hrs.
[2019-07-09] MEDS: SODIUM CHLORIDE 0.9% IV 1,000 ML 75 ML IV CONT (03:52)
[2019-07-09 06:28] LABS: Hematocrit 24.4 % (37.0-47.0); Mean Corpuscular HGB Conc 32.8 g/dl (32-36); Mean Corpuscular Hemoglobin 29.6 pg (26-34); Mean Corpuscular Volume 90.4 fl (80-100); Mean Platelet Volume 10.3 fl (7.4-10.4); Platelet Count Result 214 k/mm3 (150-375); Red Cell Distribution Width 13.8 % (11.5-14.5); White Blood Count 9.6 K/mm3 (4.5-10.0)
[2019-07-09 06:47] VITALS: BP 115/57; PULSE 88; RESP 16; TEMP 36.7; O2SAT 96
[2019-07-09 07:02] LABS: Blood Urea Nitrogen 11 mg/dL (7-17); Calcium 7.6 mg/dL (8.4-10.2); Carbon Dioxide 24 mmol/L (22-30); Chloride 103 mmol/L (98-107); Estimated CRCL calculation 84 ml/min; Estimated Glomerular Filt Rate > 60; Glucose 101 mg/dL (65-105); Sodium 131 mmol/L (137-145)
[2019-07-09 07:13] LABS: Potassium 3.9 mmol/L (3.4-5.0)
[2019-07-09] MEDS: LEVOTHYROXINE SODIUM 112 MCG TABLET PO (07:26)
--- NOTE | 2019-07-09 09:41 | PM.PNORT ---
Progress Note: A&P Assessment and Plan (1) Anemia associated with acute blood loss: Code(s): D62 - Acute posthemorrhagic anemia Status: Acute Assessment and Plan: Improved after transfusion yesterday. Appears stable. We will plan to check follow-up lab in 1 to 2 weeks. (2) History of total left hip arthroplasty: Code(s): Z96.642 - Presence of left artificial hip joint Status: Acute Assessment and Plan: Postoperative day 4. Slow progression with therapy and weight-bearing but stable. H&H improved. Tolerating diet. [facility]. Subjective Subjective Date/Time Seen: 07/09/19 09:41 No new complaints. Received a blood transfusion yesterday. H&H improved. Exam Const: General: healthy appearing and confusion ( Mild); No in distress Orientation/consciousness: oriented to person and confusion ( mild) HENMT: Head: normal to inspection, normocephalic and atraumatic Eyes: Conjunctivae: conjunctivae normal Sclera: sclerae normal Resp: Effort & Inspection: normal respiratory effort and no audible wheezes Extrem: Left lower extremity: hip/thigh Details: other ( left hip dressing clean and dry. Incision clean dry and intact. Mild swelling. No erythema. Muscle compartments soft.) and foot Details: toes with normal ROM, vascular exam Details: dorsalis pedis pulse present and normal capillary refill and motor-sensory exam light-touch normal in all toes Psych: Affect: normal affect Objective Data Vital Signs Vital Signs: Vital Signs - 24 hr 07/08/19 15:14 07/08/19 15:32 07/08/19 16:32 Temperature 99.3 F 98.6 F 98.3 F Pulse Rate 87 83 91 Respiratory Rate 18 20 21 H Blood Pressure 99/42 L 95/48 L 99/35 L Pulse Oximetry 96 94 37 L 07/08/19 17:32 07/08/19 18:32 07/08/19 23:38 Temperature 98.2 F 98.0 F 98.9 F Pulse Rate 91 88 85 Respiratory Rate 20 17 16 Blood Pressure 96/61 L 86/56 L 95/52 L Pulse Oximetry 98 97 95 07/09/19 06:47 Temperature 98.1 F Pulse Rate 88 Respiratory Rate 16 Blood Pressure 115/57 L Pulse Oximetry 96 Intake/Output Intake/Output: Intake & Output 07/06/19 07/07/19 07/08/19 07/10/19 23:59 23:59 23:59 00:59 Intake Total 960 2090 1825 520 Output Total 300 450 Balance 660 1640 1825 520 Meds/Results Medications: Active Medications Generic Name Dose Route Start Last Admin Trade Name Freq PRN Reason Stop Dose Admin Acetaminophen 650 mg 07/05/19 10:43 07/08/19 15:39 Tylenol Tablet PO 650 mg Q6H PRN Administration Mild Pain (1-3) or Fever Hydrocodone Bitart/Acetaminophen 1 tab 07/05/19 10:43 07/08/19 05:07 [place] 7.5-325 Mg PO 1 tab Q3H PRN Administration Pain Rated 4-6 Aspirin 650 mg 07/06/19 09:00 07/08/19 09:12 Aspirin Ec PO 650 mg DAILY NICKI Administration Celecoxib 200 mg 07/06/19 09:00 07/08/19 09:12 Celebrex PO 200 mg DAILY NICKI Administration Cyanocobalamin 1,000 mcg 07/06/19 09:00 07/08/19 09:13 Vitamin B-12 Tab PO 1,000 mcg DAILY NICKI Administration Diazepam 5 mg 07/05/19 10:43 07/07/19 20:52 Valium Po PO 5 mg Q6H PRN Administration Anxiety/Muscle Spasm Docusate Sodium 100 mg 07/05/19 17:00 07/08/19 17:49 Colace Capsule PO 100 mg BID NICKI Administration Donepezil HCl 10 mg 07/06/19 09:00 07/08/19 09:13 Aricept PO 10 mg DAILY NICKI Administration Hydrochlorothiazide 12.5 mg 07/06/19 09:00 07/08/19 09:18 Hydrochlorothiazide PO Not Given QAM NICKI Ibuprofen 800 mg in 200 mls @ 400 mls/hr 07/05/19 10:43 Caldolor 800 Mg/200 Ml IVPB Q6H PRN Pain Rated 4-6 Sodium Chloride 1,000 mls @ 75 mls/hr 07/07/19 14:10 07/09/19 03:52 Normal Saline Iv IV CONT 75 mls/hr .[id number] NICKI Administration Levothyroxine Sodium 112 mcg 07/06/19 06:30 07/09/19 07:26 Synthroid PO 112 mcg DAILY@0630 NICKI Administration Lisinopril 10 mg 07/06/19 09:00 07/08/19 09:
[2019-07-09] MEDS: ASPIRIN 325 MG ENTERIC TABLET 650 MG PO (09:58)
[2019-07-09] MEDS: DOCUSATE SODIUM 100 MG CAPSULE PO (09:59)
[2019-07-09] MEDS: CELECOXIB 200 MG CAPSULE PO (10:01)
[2019-07-09] MEDS: DONEPEZIL HCL 10 MG TABLET PO (10:01)
[2019-07-09] MEDS: lisinopriL 10 MG TABLET PO (10:02)
[2019-07-09 10:22] VITALS: O2SAT 96
[2019-07-09] MEDS: CYANOCOBALAMIN 1,000 MCG TABLET 1000 MCG PO (12:32)
[2019-07-09] MEDS: MEMANTINE 10 MG TABLET PO (12:32)
--- NOTE | 2019-07-09 13:04 | PM.IMPN ---
Progress Note: A&P Assessment and Plan (1) History of total left hip arthroplasty: Code(s): Z96.642 - Presence of left artificial hip joint Status: Acute Assessment and Plan: 07/08/19 13:[address] Mercer. She has bilateral SCDs. Pain management per Dr. Mercer. Her large Band-Aid is dry and intact the left hip. No drainage is noted. DVT prophylaxis as per Dr. Mercer the patient has SCDs on Patient is 69-year-old female with severe dementia with history of severe osteoarthritis conservative management failed patient was seen by her orthopedic surgeon and had a left total hip arthroplasty postop day 2. Patient says the pain is controlled working with physical therapy, denies any complaint of chest pain shortness of breath palpitation fever or chills, was seen by her surgeon plan is to transfer the patient for rehab, as patient with dementia will benefit from acute rehab to recover from her repeat surgery, today patient hemoglobin is trending down most likely secondary to hemodilution as well as some blood loss during the surgery will give 1 unit of pack RBC and monitor, patient denies any bleeding patient denies and swelling along the surgical incision I also spoke with her nurse and see does not suspect and hematoma along the surgical incision. (2) Hypothyroidism, unspecified: Code(s): E03.9 - Hypothyroidism, unspecified Status: Chronic Assessment and Plan: Continue with levothyroxine. (3) Mixed hyperlipidemia: Code(s): E78.2 - Mixed hyperlipidemia Status: Chronic Assessment and Plan: Continue with Zocor. (4) Essential (primary) hypertension: Code(s): I10 - Essential (primary) hypertension Status: Chronic Assessment and Plan: Continue with lisinopril. She is on hydrochlorothiazide as well. Please monitor basic metabolic panel. (5) Alzheimer's dementia without behavioral disturbance: Code(s): G30.9 - Alzheimer's disease, unspecified; F02.80 - Dementia in other diseases classified elsewhere without behavioral disturbance Status: Chronic Assessment and Plan: Patient is very forgetful. However he right in her a note as reminder this helps. She has been very pleasant. Continue with Aricept Subjective Date/time seen: 07/09/19 13:[address] Mercer. She has bilateral SCDs. Pain management per Dr. Mercer. Her large Band-Aid is dry and intact the left hip. No drainage is noted. DVT prophylaxis as per Dr. Mercer the patient has SCDs on Patient is 69-year-old female with severe dementia with history of severe osteoarthritis conservative management failed patient was seen by her orthopedic surgeon and had a left total hip arthroplasty postop day 2. Patient says the pain is controlled working with physical therapy, denies any complaint of chest pain shortness of breath palpitation fever or chills, was seen by her surgeon plan is to transfer the patient for rehab, as patient with dementia will benefit from acute rehab to recover from her repeat surgery, today patient hemoglobin is trending down most likely secondary to hemodilution as well as some blood loss during the surgery will give 1 unit of pack RBC and monitor, patient denies any bleeding patient denies and swelling along the surgical incision I also spoke with her nurse and see does not suspect and hematoma along the surgical incision. Today patient participate in physical therapy and progressing well, the pain is controlled patient was seen by her orthopedic and stable to transfer the patient to rehab today Review of Systems Review of Systems: All systems reviewed & are unremarkable except as noted in HPI and below Exam Narrative: Exam Narrative: Patient with dementia pleasantly confused Const: General: comfortable and no acute distress HENMT: General nose exam: Normal nares present Mouth: Yes moist mucous membranes Eyes: General: appearance normal, both eyes
--- NOTE | 2019-07-27 13:43 | PM.DS ---
DS: Diagnosis Admitting Diagnosis Admitting Diagnosis: Unilateral primary osteoarthritis, left hip Discharge Diagnosis (1) History of total left hip arthroplasty: Code(s): Z96.642 - Presence of left artificial hip joint Status: Acute DS: Summary Time Spent with Patient Time attestation: Total time spent providing and/or coordinating discharge services: 15 min Discharge Plan Discharge Attending physician on discharge: Alan Mercer Consulting providers: Star Mcclelland ; Paloma Montiel ; Henry Guan ; Tracey Diamond ; Jose De Jesus Sutton Discharging Clinician: Alan Mercer Anticipated Discharge Date/Time: 07/09/19 12:00 Patient Disposition: SNF Activity: may shower, no driving and follow weight bearing status Diet: as tolerated Wound Care Instructions: keep dressing dry and other - see discharge instructions Discharge Instructions: Per Care Coordination, Pt. will discharge to [facility] with [facility] . Please have Pt.'s RN fax discharge information to . [facility] will contact the pt. to schedule her first appointment. your dressing will be changed by the nurse in one week Patient to follow up with her primary care provider as soon as possible Patient Instructions: Pain Management (DC), Total Hip Replacement (DC) Stand Alone Forms: General Discharge Information Follow-up/Referrals: Alan Mercer MD [Physician] - 3 Weeks Discharge Medications: New hydrocodone-acetaminophen [Lindsay] 5-325 mg tablet 1 tablet PO Q8H PRN (Reason: pain) Qty: 60 RF: 0 aspirin 325 mg tablet 325 mg PO BID Qty: 60 RF: 0 acetaminophen [Mapap (acetaminophen)] 325 mg Tablet 650 mg PO Q6H PRN (Reason: Mild Pain (1-3) Or Fever) Qty: 30 RF: 0 aspirin 325 mg Tablet,Delayed Release (Dr/Ec) 650 mg PO DAILY Qty: 60 RF: 0 docusate sodium 100 mg Capsule 100 mg PO BID Qty: 20 RF: 0 Continued simvastatin [Zocor] 40 mg tablet 40 mg PO HS RF: 0 lisinopril-hydrochlorothiazide 10-12.5 mg tablet 10 - 12.5 tablet PO DAILY RF: 0 sulfamethoxazole-trimethoprim 400-80 mg Tablet 1 tablet PO DAILY RF: 0 Complete Multivitamin Tablet 1 tablet PO DAILY RF: 0 cyanocobalamin (vitamin B-12) 1,000 mcg capsule 1,000 mcg PO DAILY Qty: 1 RF: 0 trospium 20 mg tablet 20 mg PO DAILY Qty: 1 RF: 0 memantine 10 mg tablet 10 mg PO BID Qty: 60 RF: 0 donepezil [Aricept] 10 mg tablet 10 mg PO DAILY Qty: 90 RF: 0 levothyroxine 112 mcg tablet 112 mcg PO DAILY Qty: 90 RF: 0 Date of admission: 07/06/19 19:03 Primary Care Provider: Sav Valencia Jr. Admitting Provider: Alan Mercer Discharge Date/Time: 07/09/19 16:20 Attending physician on admission: Alan eMrcer Condition: Stable Care Plan Goals: rehab vs snf Health Concerns: dementia Quality VTE Prophylaxis VTE prophylaxis: mechanical ordered
== END 2019-07-09 16:20 | DRG 470 ==
LOC: ANHSURGERY 19:16 → ANH3MEDSUR 19:16
PROVIDERS: Family Medicine; Admitting Provider Orthopaedic Surgery; PCP Internal Medicine; Visit Provider Orthopaedic Surgery
PROC: 0SRB04A Replacement of Left Hip Joint with Ceramic on Polyethylene Synthetic Substitute, Uncemented, Open Approach (ICD-10-PCS; CPT 27130; principal; 2019-07-05 07:30)
DX: M16.12 Unilateral primary osteoarthritis, left hip (principal); D62 Acute posthemorrhagic anemia; G30.9 Alzheimer's disease, unspecified; F02.80 Dementia in other diseases classified elsewhere, unspecified severity, without behavioral disturbance, psychotic disturbance, mood disturbance, and anxiety; Z87.891 Personal history of nicotine dependence; E66.9 Obesity, unspecified; Z68.35 Body mass index [BMI] 35.0-35.9, adult; E03.9 Hypothyroidism, unspecified; E78.2 Mixed hyperlipidemia; I10 Essential (primary) hypertension; Z85.41 Personal history of malignant neoplasm of cervix uteri; Z87.442 Personal history of urinary calculi; Z87.440 Personal history of urinary (tract) infections; Z90.710 Acquired absence of both cervix and uterus; Z96.651 Presence of right artificial knee joint
CPT/HCPCS: 36415; 36430; 73501; 80048; 85014; 85018; 85025; 85027; 86850; 86900; 86901; 86920; 86923; 97110; 97116; 97161; 97165; 97535; A9270; C1713; C1776; J0171; J0690; J1100; J1741; J2250; J2270; J2370; J2405; J2704; J2710; J2795; J3010; J7030; J7040; J7050; J7120; P9016